=== PATIENT | female | born 1955 | race Caucasian/White ===

== ENCOUNTER 2018-06-29 03:17 | Emergency (ER) | payer OTHER ==
[2018-06-29] MEDS ORDERED: Ketorolac 30 MG/ML SDV IVPUSH ONE (03:34)
[2018-06-29] MEDS ORDERED: Metoclopramide 10 MG/2 ML SDV IVPUSH ONE (03:34)
[2018-06-29] MEDS ORDERED: Sodium Chloride 0.9% 1,000 ML IV ONE (03:34)
--- NOTE | 2018-06-29 03:39 | EDM.PDOC ---
ED HPI GENERAL MEDICAL PROBLEM - General Chief Complaint: Gastrointestinal Problem Stated Complaint: AMBULANCE-UNKNOWN Time Seen by Provider: 06/29/18 03:36 Source of Information: Reports: Patient History Limitations: Reports: No Limitations - History of Present Illness INITIAL COMMENTS - FREE TEXT/NARRATIVE: ate BBQ meatballs tonight, woke up with epiG-RUQ pain with N&V 1x loose stools. Treatments LATHE PULLER: Reports: IV/IO, Other (see below) Other Treatments LATHE PULLER: Zofran Abdomen Pain Score (Numeric/FACES): 9 - Related Data Allergies Allergy/AdvReac Type Severity Reaction Status Date / Time aspirin Allergy Nausea Verified 06/29/18 03:34 oxycodone Allergy Nausea and Verified 06/29/18 03:34 Vomiting Home Meds: Home Meds Estrogens, Conjugated [Premarin] 1 tab PO ASDIRECTED 10/27/15 [History] Levothyroxine Sodium [Synthroid] 1 tab PO ASDIRECTED 10/27/15 [History] Losartan Potassium 50 mg PO ASDIRECTED 10/27/15 [History] Nitrofurantoin Macrocrystal [Macrodantin] 100 mg PO ASDIRECTED 10/27/15 [History ] Phenazopyridine [Pyridium] 100 mg PO ASDIRECTED 10/27/15 [History] Verapamil HCl [Verapamil Sr] 180 mg PO ASDIRECTED 10/27/15 [History] Past Medical History HEENT History: Reports: None Cardiovascular History: Reports: Hypertension Respiratory History: Reports: None Gastrointestinal History: Reports: None Genitourinary History: Reports: None [employer]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 Musculoskeletal History: Reports: None Neurological History: Reports: None Psychiatric History: Reports: None Endocrine/Metabolic History: Reports: Hypothyroidism Hematologic History: Reports: None Immunologic History: Reports: None Oncologic (Cancer) History: Reports: None Dermatologic History: Reports: None - Past Surgical History Female Surgical History: Reports: Hysterectomy Endocrine Surgical History: Reports: Thyroidectomy Other Endocrine Surgeries/Procedures: partial Social & Family History - Tobacco Use Smoking Status *Q: Current Some Day Smoker Years of Tobacco use: 43 Packs/Tins Daily: 1 - Caffeine Use Caffeine Use: Reports: Soda - Alcohol Use Date of Last Drink: 06/27/18 - Recreational Drug Use Recreational Drug Use: No ED ROS GENERAL - Review of Systems Review Of Systems: ROS reveals no pertinent complaints other than HPI. ED EXAM, GI/ABD - Physical Exam Exam: See Below Exam Limited By: No Limitations General Appearance: Alert, WD/WN, Mild Distress, Other (tearful) Ears: Hearing Grossly Normal Throat/Mouth: Normal Voice, No Airway Compromise Head: Atraumatic Neck: Non-Tender, Full Range of Motion Respiratory/Chest: No Respiratory Distress Cardiovascular: Regular Rate, Rhythm GI/Abdominal Exam: Guarding, Tender, Other (RUQ region, hyper BS). No: Distended, Rigid, Rebound Neurological: Alert, Oriented, Normal Cognition, Normal Gait, No Motor/Sensory Deficits Psychiatric: Tearful Skin Exam: Warm, Dry, Normal Color Lymphatic: No Adenopathy Course - Vital Signs Last Recorded V/S: Last Vital Signs Temp 36.6 C 06/29/18 04:48 Pulse 72 06/29/18 04:48 Resp 18 06/29/18 04:48 BP 149/63 H 06/29/18 04:48 Pulse Ox 100 06/29/18 04:48 - Orders/Labs/Meds Labs: Laboratory Tests 06/29/18 06/29/18 Range/Units 03:40 03:40 WBC 10.8 H (5.0-10.0) 10^3/uL RBC 4.02 L (4.2-5.4) 10^6/uL Hgb 13.2 D (12.0-16.0) g/dL Hct 38.8 (37.0-47.0) % MCV 96.5 (80-100) fL MCH 32.8 (27.0-34.0) pg MCHC 34.0 (33.0-35.0) g/dL Plt Count 202 (150-450) 10^3/uL Neut % (Auto) 79.7 H (42.2-75.2) % Lymph % (Auto) 12.3 L (20.5-50.1) % [place] % (Auto) 5.4 (2-8) % Eos % (Auto) 2.1 (1.0-3.0) % Baso % (Auto) 0.5 (0.0-1.0) % Sodium 135 (135-145) mmol/L Potassium 4.0 (3.6-5.0) mmol/L Chloride 102 (101-111) mmol/L Carbon Dioxide 20.0 L (21.0-31.0) mmol/L Anion Gap 17.0 BUN 20 H (7-18) mg/dL Creatinine 1.0 (0.6-1.3) mg/dL Est Cr Clr Drug Dosing 49.72 mL/min Estimated GFR (MDRD) 56 BUN/Creatinine Ratio 20.00 Glucose 116 H (74-105) mg/dL Calcium 9.5 (8.4-10.2) mg/dl Total Bilirubin 0.7 (0.2-1.0) mg/dL AST 54 H (10-42) IU/L ALT 73 H (10-60) IU/L Alkaline Phosphatase 68 (42-121) IU/L Total Protein 6.9 (6.7-8.2) g/dl Albumin 3.8 (3.2-5.5) g/dl Globulin 3.1 Albumin/Globulin Ratio 1.23 Amylase 98 (28-100) U/L Lipase 32 (22-51) U/L Meds: Medications Discontinued Medications Generic Name Dose Route Start Last Admin Trade Name Jesúsq PRN Reason Stop Dose Admin Sodium Chloride 1,000 mls @ 999 mls/hr 06/29/18 03:34 06/29/18 03:43 Normal Saline IV 06/29/18 04:34 999 mls/hr .BOLUS ONE Administration Ketorolac Tromethamine 15 mg 06/29/18 03:34 06/29/18 03:44 Toradol IVPUSH 06/29/18 03:35 15 mg ONETIME ONE Administration Metoclopramide HCl 10 mg 06/29/18 03:34 06/29/18 03:43 Reglan IVPUSH 06/29/18 03:35 10 mg ONETIME ONE Administration - Re-Assessments/Exams Free Text/Narrative Re-Assessment/Exam: 06/29/18 04:38 results discussed with pt who is feeling much better s/p IV toradol. pt states had recent US and was told she has GB problem. Departure - Departure Time of Disposition: 04:50 Disposition: Home, Self-Care 01 Condition: Good Clinical Impression: Cholelithiasis without obstruction - Discharge Information Instructions: Cholelithiasis, [id number] Referrals: PCP,Unobtain [Primary Care Provider] - Forms: ED Department Discharge Additional Instructions: 1) avoid fried, oily, spicy foods 2) see family doctor today for SURGICAL REFERRAL for GALL BLADDER PROBLEM 3) recheck as needed rx given; bentyl 10mg tid prn x 6
[2018-06-29 04:57] VITALS: BP 149/63
== END 2018-06-29 04:51 | disposition home or self-care (01) ==
LOC: DL.ED 03:17
DX: K80.20 Calculus of gallbladder without cholecystitis without obstruction (principal); I10 Essential (primary) hypertension; F17.210 Nicotine dependence, cigarettes, uncomplicated; Z88.8 Allergy status to other drugs, medicaments and biological substances
CPT/HCPCS: 36415; 80053; 82150; 83690; 85025; 96361; 96374; 96375; 99284; J1885; J2765; J7030

== ENCOUNTER 2021-06-22 08:36 | Emergency (ER) | payer OTHER, MEDICARE ==
[2021-06-22 08:59] VITALS: BP 113/88; PULSE 88
[2021-06-22 09:41] LABS: CORONAVIRUS COVID-19 NAA POSITIVE (NEGATIVE)
== END 2021-06-22 10:12 | disposition home or self-care (01) ==
LOC: DL.ED 08:36
DX: U07.1 COVID-19 (principal); I10 Essential (primary) hypertension; E03.9 Hypothyroidism, unspecified; Z88.1 Allergy status to other antibiotic agents; Z88.7 Allergy status to serum and vaccine; Z88.8 Allergy status to other drugs, medicaments and biological substances; Z88.5 Allergy status to narcotic agent; Z79.899 Other long term (current) drug therapy
CPT/HCPCS: 0240U; 99283